=== PATIENT | male | born 1945 | race Caucasian/White ===

== ENCOUNTER 2018-05-28 10:12 | Outpatient (REF) | payer MEDICARE, OTHER, SELFPAY ==
[2018-05-28 19:00] LABS: TSH (W/Ref FT4) 3.38 uIU/mL (0.358-3.74)
== END 2018-05-28 10:13 ==
LOC: NCHCN 10:12
PROVIDERS: PCP Nurse Practitioner; Visit Provider Nurse Practitioner
DX: E03.9 Hypothyroidism, unspecified (principal)
CPT/HCPCS: 84443

== ENCOUNTER 2020-01-13 02:41 | Outpatient (CLI) | payer MEDICARE, OTHER, SELFPAY ==
[2020-01-13 13:57] LABS: HCT 38.7 % (40.0-50.0); HGB 13.5 g/dL (13.5-17.5); Mean Corp. HGB Concentration 34.9 g/dL (32.0-36.0); Mean Platelet Volume 9.3 fL (8.0-11.0); Platelet Count 274 x1000/uL (130-400); RBC 3.65 m/cumm (4.50-6.00); RBC Distribution Width 11.2 % (11.8-14.1)
[2020-01-13 14:58] LABS: ALT 39 U/L (16-63); AST 76 U/L (15-37)
[2020-01-13 15:16] LABS: Cholesterol 188 mg/dL (<200); Triglyceride 84 mg/dL (<150)
== END 2020-01-13 03:01 ==
PROVIDERS: PCP Nurse Practitioner; Visit Provider Dermatology
DX: L40.0 Psoriasis vulgaris (principal); Z79.899 Other long term (current) drug therapy
CPT/HCPCS: 36415; 85027; 82465; 84450; 84460; 84478

== ENCOUNTER 2020-02-04 13:59 | Emergency (ER) | payer MEDICARE, OTHER, SELFPAY ==
--- NOTE | 2020-02-04 14:00 | DI.US_ITS ---
EXAM: US LOWER EXTREMITY VENOUS LT CLINICAL HISTORY: calf pain with chord, concern for DVT. TECHNIQUE: Lower extremity venous ultrasound performed using grayscale, color-flow, and spectral Dop pler analysis. COMPARISON: No exams were available for comparison FINDINGS: The common femoral, femoral and popliteal veins demonstrate normal compressibility, augmentation, and color Doppler. The posterior tibial veins are patent. The saphenous vein appears free of thrombus. No Phelps's cyst or hematoma is seen. IMPRESSION: No evidence of DVT. DATA REPOSITORY:
[2020-02-04 14:03] VITALS: BP 120/70; PULSE 120; RESP 18; TEMP 37.4; O2SAT 96
--- NOTE | 2020-02-04 14:03 | ED.GENADUL_ITS ---
Discharge Plan Disposition Patient Disposition: HOME Condition: Good Discharge Details Chief Complaint: Vascular Clinical Impression: Varicose vein of leg Primary Care Provider: Flora Millan ED Provider: Jennifer Rubio Home Meds and New Rx's Prescriptions: Continued aspirin 325 MG tablet 325 mg PO DAILY RF: 0 betamethasone, augmented 30 ML lotion 30 ml Topical DIRECTED RF: 0 methotrexate sodium 2.5 MG tablet 2.5 mg PO 3 TABS WEEKLY RF: 0 tamsulosin [Flomax] 0.4 MG capsule 0.4 mg PO DAILY RF: 0 vitamin B complex 1 EACH tablet 1 ea PO DAILY RF: 0 folic acid 1 MG tablet 1 mg PO DAILY RF: 0 allopurinol 300 MG tablet 300 mg PO DAILY RF: 0 lisinopril 5 MG tablet 5 mg PO DAILY RF: 0 albuterol sulfate [ProAir HFA] 8.5 GM HFA aerosol inhaler 2 puff Inhalation Q4H PRN RF: 0 fluticasone propionate [Flonase Allergy Relief] 9.9 ML spray,suspension 9.9 ml NS DIRECTED RF: 0 coenzyme Q10 [CoQ-10] 100 MG capsule 0 PO DAILY RF: 0 omega-3 fatty acids-fish oil 1 EACH capsule 1 ea PO BID RF: 0 triamcinolone acetonide 63 GM aerosol 63 gm Topical BID RF: 0 melatonin 5 MG tablet 5 mg PO DAILY RF: 0 pneumoc 13-ana conj-dip cr(PF) [Prevnar 13 (PF)] 0.5 ML syringe 0.5 ml IM ONCE Qty: 1 RF: 0 iodine [Kelp (iodine)] 150 MCG tablet 0 PO DIRECTED RF: 0 magnesium citrate 100 MG tablet 100 mg PO TID RF: 0 levothyroxine 25 MCG tablet 25 mcg PO DAILY RF: 0 meclizine 25 MG tablet 25 mg PO BID Qty: 60 RF: 11 hydroxyzine HCl 10 mg tablet 10 mg PO QHS RF: 0 albuterol sulfate [Ventolin HFA] 90 mcg/actuation HFA aerosol inhaler 2 puff IH Q6H PRNRF: 0 Discharge Instructions Instructions: Venous Insufficiency (DC) Additional Instructions: Your ultrasound and labs are reassuring today. However, I am concerned about your other symptoms and your discomfort. For follow up, you have an appointment with Sunday Gomez PA-C tomorrow morning at 10:45. In the meantime, please wear your compression hose, elevate your legs. Please try to walk or do ankle pumps as discussed. If you develop fevers/chills, increased pain, shortness of breath or other new/worsening symptoms please seek care urgently once again. Referrals: Flora Millan [Primary Care Provider] - Discharge Data Discharge Date/Time-TO BE ENTERED AT DEPARTURE: 02/04/20 15:37 Medical Decision Making <NAI Carreon - Last Filed: 02/04/20 22:03> Patient is a pleasant 74 year old male presenting today with c/c of LLE pain that began one week ago. STates that he chronically has varicocities. No hx of DVT or clotting disorder. States that over the past 2 days he has noted some discoloration around the area of pain. Denies trauma. No fevers/chills. He states that he has been more sedentary than typical. Is not anticoagulated. Patient denies CP, SOB, no exertional dyspnea. Patient is supposed to be starting Humira for psoriasis soon, has had basic workup prior to starting. He is concerned regarding starting Humira. Also states that he has lost about 40lb over the past year, states that one year ago he lost sense of smell and taste. REports negative MRI. On exam, patient appears nontoxic. He is tachycardic but appeared anxious initially, his tachycardia quickly resolved. He otherwise has a normal cardiac exam, lungs are clear. Exam of LLE reveal well healed TKA incisions over knee. He has full ROM without pain. He has what appears to be yellowed ecchymosis over inferiomedial knee as well as separate area of yellowed ecchymois mid medial calf. This is area of maximal pain. He has several varicosities around this area. There is no palpable cord. 2+ distal pulses on RLE, dopplerable pulses on LLE. No erythema, fluctuance. He has good strength testing. Concerned primarily for DVT. Also considered mild trauma with the ecchymosis noted. I do not see evidence of arterial injury, compartment syndrome. Plan for DVT US and labs. US without evidence of DVT. Varicose veins noted FINDINGS: The common femoral, femoral and popliteal veins demonstrate normal compressibility, augmentation, and color Doppler. The posterior tibial veins are patent. The saphenous vein appears free of thrombus. No Phelps's cyst or hematoma is seen. IMPRESSION: No evidence of DVT. Labs reviewed, BUN is elevated at 28. ALT is elevated but this is baseline for the patient. Other labs are without signficant abnormality. Discussed findings with the patient. He has compression hose at home which he has worn historically. I encouraged elevation of his BLE. Advised on how to treat discomfort. I remain concerned regarding the constitutional symptoms he has had for a year. Contacted primary care office. Flora Millan, patient's PCP is not in, but I was able to speak with Stnoey Gomez PA-C. We discussed patients case, he agrees that patient should be followed up in the office. Patient has appointment tomorrow at 10:45AM. He was given return precautions. All of the patients questions and concerns were addressed, he is in agreement with this plan. <Sylvester Yoder MD - Last Filed: 02/04/20 14:33> Patient seen, examined, discussed with Ms. Rubio. I agree with her plan of care. HPI <NAI Careron - Last Filed: 02/04/20 22:03> General Mode of arrival: ambulatory . Date/Time Provider Initiated Documentation: 02/04/20 14:02 . Limitations to Documentation: no limitations . Information obtained by: patient and RN notes reviewed . History of Present Illness 74 year old M presents to the emergency department with the chief complaint of left lower extremity pain, described as severe, with intensity rated at 8. and is localized to the left and lower extremity. Patient reports no radiation. Patient started experiencing this week(s) (1) and it has been constant. No relieving factors improve symptom(s), No exacerbating factors reported . Patient notes denies chest pain, cough, fever/chills, nausea/vomiting, rash, shortness of breath and weakness. Patient did receive the following treatments prior to arrival, none Related Data Home Medications Medication Instructions Recorded Confirmed albuterol sulfate [ProAir HFA] 2 puff INHALATION Q4H PRN inhaler 09/29/15 allopurinol 300 mg PO DAILY tab-cap 09/29/15 aspirin 325 mg PO DAILY tab-cap 09/29/15 betamethasone, augmented 30 ml TOPICAL DIRECTED script 09/29/15 coenzyme Q10 [CoQ-10] 0 PO DAILY 09/29/15 fluticasone propionate [Flonase 9.9 ml NS DIRECTED 09/29/15 Allergy Relief] folic acid 1 mg PO DAILY tab-cap 09/29/15 iodine [Kelp (iodine)] 0 PO DIRECTED 09/29/15 lisinopril 5 mg PO DAILY tab-cap 09/29/15 magnesium citrate 100 mg PO TID 09/29/15 melatonin 5 mg PO DAILY 09/29/15 methotrexate sodium 2.5 mg PO 3 TABS WEEKLY tab-cap 09/29/15 omega-3 fatty acids-fish oil 1 ea PO BID 09/29/15 pneumoc 13-ana conj-dip cr(PF) 0.5 ml IM ONCE #1 syr 09/29/15 [Prevnar 13 (PF)] tamsulosin [Flomax] 0.4 mg PO DAILY tab-cap 09/29/15 triamcinolone acetonide 63 gm TOPICAL BID 09/29/15 vitamin B complex 1 ea PO DAILY 09/29/15 levothyroxine 25 mcg PO DAILY tab-cap 10/07/15 meclizine 25 mg PO BID #60 tab-cap 10/07/15 albuterol sulfate 90 mcg/actuation 2 puff IH Q6H PRN 04/25/19 aerosol inhaler hydroxyzine HCl 10 mg tablet 10 mg PO QHS 04/25/19 Allergies Allergy/AdvReac Type Severity Reaction Status Date / Time cyclobenzaprine HCl Allergy Severe SOB Unverified 02/04/20 14:10 [From Flexeril] Swelling prednisone Allergy Severe SOB Unverified 02/04/20 14:10 Swelling acetaminophen Allergy Intermediate gastric Unverified 02/04/20 14:10 upset atorvastatin Allergy Verified 02/04/20 14:10 prednisolone Allergy Verified 02/04/20 14:10 hydroxyzine AdvReac Intermediate hallucinati Unverified 02/04/20 14:10 ons Review of Systems <NAI Carreon - Last Filed: 02/04/20 22:03> Constitutional Constitutional: Reports as per HPI, Denies chills, Denies fever(s), Denies headache(s) and Denies weakness ENT Ears, Nose, Mouth, and Throat: Denies headache(s) Cardiovascular Cardiovascular: Reports as per HPI, Denies chest pain and Denies dyspnea Respiratory Respiratory: Reports as per HPI, Denies cough and Denies dyspnea Musculoskeletal Musculoskeletal: Reports as per HPI and Denies tingling Integumentary/Breasts Skin/Breast: Reports as per HPI, Denies rash, Reports unusual bruising and Denies wounds Neurologic Neurologic: Reports as per HPI, Denies headache(s), Denies tingling, Denies paresthesias and Denies weakness PFSH <NAI Carreon - Last Filed: 02/04/20 22:03> Medical History (Updated 02/04/20 @ 15:22 by NAI Carreon) Allergic rhinitis (Acute) Allergy (Acute) Asthma (Chronic) Bilateral cataracts (Acute) BPH (benign prostatic hyperplasia) (Chronic) Carotid stenosis (Acute) [place]'s disease (Acute) Hearing loss (Acute) HTN (hypertension) (Chronic) Hyperlipidemia (Acute) Hypothyroidism (Chronic) Loss of smell (Acute) Loss of taste (Acute) Posterior vitreous detachment of left eye (Acute) Psoriasis (Chronic) Snoring (Acute) Subdural hematoma (Acute) Tremor, essential (Acute) Surgical History (Updated 04/25/19 @ 13:32 by Paige Pérez RN) Appendectomy (~1962) Arthroplasty of knee (~1956) [place] repair both knees [facility] [place]. Replacement of total knee joint (12/01/11) Right Was in November at [facility] [place] Status post total knee replacement, right (Acute) Social History Smoking/Tobacco Use Status: Current-Occasional Tobacco Type: cigarettes Alcohol Intake: current Alcohol Intake frequency: 0-2 drinks per day Alcohol type: hard liquor Drug use: Socially Substance use type: marijuana Do you feel safe at home: Yes Do you feel safe in your relationship?: Yes Exam <NAI Carreon - Last Filed: 02/04/20 22:03> Const General: cooperative, healthy appearing, comfortable, no acute distress, well developed and well groomed Nutritional Appearance: average body habitus and well nourished Orientation: alert and awake Resp Effort & Inspection: normal respiratory effort, able to speak in complete sentences and no respiratory distress Auscultation: clear to auscultation bilaterally Cardio Rate: tachycardic Rhythm: regular rhythm Heart Sounds: S1 normal and S2 normal GI Inspection: normal to inspection Skin General skin exam: ecchymosis (two areas of discoloration, yellowed ecchymosis left knee and medial calf) Lesions: no lesions Rashes: no rashes Neuro General: patient alert and patient awake Cognition: normal cognition Speech: speech normal Gait: normal gait Motor: muscle tone normal throughout Sensory Exam: no sensory deficits noted Extrem General: full ROM, capillary refill normal, no pedal edema and calf tenderness on the left Left lower extremity: full ROM, normal capillary refill (dopplerable pulses, limited to palpation), no joint enlargement, knee (well healed surgical incisions ) Details: normal ROM and ecchymosis (ecchymosis inferiomedial aspect); no tenderness and no swelling and lower leg Details: tenderness Location: of the posterior calf (and medial), no edema and ecchymosis (what appears to be yellowed ecchymosis over maximally tender area); no erythema, no localized swelling, no palpable cords (patient has notable varicocities but no palpable cord or phlebitis), no crepitus, no penetrating wound, no deformity and no unusual warmth; no cyanosis and no edema Psych Appearance: grossly normal and well kempt Mental Status: mental status grossly normal Speech and Movement: speech and movement normal
[2020-02-04 14:41] LABS: Abs Immature Grans 0.02 k/cumm (0.0-0.09); Absolute Basophil Count 0.05 k/cumm (0.0-0.2); Absolute Eosinophil Count 0.29 k/cumm (0.0-0.7); Absolute Lymphocyte Count 1.31 k/cumm (1.2-3.4); Absolute Monocyte Count 0.88 k/cumm (0.11-0.7); Absolute Neutrophil Count 4.57 k/cumm (1.2-6.7); Basophils % 0.7; Eosinophils % 4.1; HCT 38.2 % (40.0-50.0); HGB 13.3 g/dL (13.5-17.5); Immature Grans % 0.3 %; Lymphocytes % 18.4; Mean Corp. HGB Concentration 34.8 g/dL (32.0-36.0); Mean Corpuscular Hemoglobin 36.8 pg (27.0-33.0); Mean Corpuscular Volume 105.8 fL (80-95); Mean Platelet Volume 9.3 fL (8.0-11.0); Monocytes % 12.4; Neutrophils % 64.1; Platelet Count 215 x1000/uL (130-400); RBC 3.61 m/cumm (4.50-6.00); RBC Distribution Width 11.4 % (11.8-14.1); White Blood Cell Count 7.12 k/cumm (4.4-10.8)
[2020-02-04 14:50] LABS: INR 1.1 (0.9-1.1); PTT Activated 22.8 sec (21.0-31.4); Prothrombin Time 11.3 sec (9.3-11.0)
[2020-02-04 14:58] LABS: ALT 35 U/L (16-63); AST 53 U/L (15-37); Albumin 3.6 g/dL (3.4-5.0); Alkaline Phosphatase 73 U/L (46-116); Anion Gap 10.2 mmol/L (3-11); BUN 28 mg/dL (7-18); Bilirubin, Total 0.6 mg/dL (0.2-1.0); CO2 28.8 mmol/L (21.0-32.0); CREATININE 0.79 mg/dL (0.70-1.30); Calcium 9.7 mg/dL (8.5-10.1); Chloride 98 mmol/L (98-107); Glucose 121 mg/dL (74-106); Potassium 3.6 mmol/L (3.5-5.1); Sodium 137 mmol/L (136-145); Total Protein 7.3 g/dL (6.4-8.2)
[2020-02-04 15:21] VITALS: BP 121/72; PULSE 87; RESP 20; TEMP 37.4; O2SAT 96
== END 2020-02-04 15:37 | disposition home or self-care (01) ==
PROVIDERS: Emergency Provider Physician Assistant; PCP Nurse Practitioner
DX: I83.812 Varicose veins of left lower extremity with pain (principal); I10 Essential (primary) hypertension
CPT/HCPCS: 36415; 80053; 99284; 85025; 85610; 85730; 93971

== ENCOUNTER 2020-02-10 01:38 | Outpatient (CLI) | payer MEDICARE, OTHER, SELFPAY ==
--- NOTE | 2020-02-10 | DI.RAD_ITS ---
EXAM: XR CHEST 2V PA LATERAL CLINICAL HISTORY: ABNL WT LOSS, R63.4 TECHNIQUE: 2D digital imaging was performed. COMPARISON: No exams were available for comparison FINDINGS: The heart is not enlarged. The lungs are clear and well expanded. No pleural effusion seen. Mediastin al contours appear intact. IMPRESSION: Normal chest
== END 2020-02-10 01:58 ==
PROVIDERS: PCP Nurse Practitioner; Visit Provider Physician Assistant
DX: R63.4 Abnormal weight loss (principal)
CPT/HCPCS: 71046

== ENCOUNTER 2020-07-29 04:21 | Outpatient (CLI) | payer MEDICARE, OTHER, SELFPAY ==
[2020-07-29 13:00] LABS: Iron 159 ug/dL (65-175); Total Iron Binding Capacity 264 ug/dL (250-450); Transferrin Sat 60 % (20-55)
[2020-07-29 13:12] LABS: Vitamin B12 1214 pg/mL (193-986)
[2020-07-29 13:28] LABS: Folate > 20.0 ng/mL (8.6-20.0)
[2020-07-30 04:25] LABS: Vitamin D 25 Total 95.2 ng/ml (30-100)
[2020-07-30 14:10] LABS: Zinc, Serum 0.79 mcg/mL (0.66-1.10)
== END 2020-07-29 04:41 ==
PROVIDERS: PCP Nurse Practitioner; Visit Provider Nurse Practitioner
DX: R63.4 Abnormal weight loss (principal); D64.9 Anemia, unspecified; Z13.21 Encounter for screening for nutritional disorder; R43.8 Other disturbances of smell and taste
CPT/HCPCS: 36415; 82306; 82607; 82746; 83540; 83550; 84630